=== PATIENT | male | born 1990 | race African-American/Black ===

== ENCOUNTER 2022-08-09 10:48 | Emergency (ER) | payer OTHER, SELFPAY ==
[2022-08-09] MEDS ORDERED: fentaNYL 50 mcg/mL 1 mL Vial ONE (11:33)
[2022-08-09] MEDS ORDERED: Boostrix 0.5 ML (Tdap) VIAL (>/=7 yrs of age) ONE (11:34)
[2022-08-09] MEDS ORDERED: HYDROcodone/Acetaminophen 5/325 mg Tablet ONE (12:57)
== END 2022-08-09 13:40 | disposition home or self-care (01) ==
LOC: CSHERS 10:48
DX: L02.214 Cutaneous abscess of groin (principal); F17.210 Nicotine dependence, cigarettes, uncomplicated
CPT/HCPCS: 10061; 90715; 96374; J3010